=== PATIENT | female | born 1975 | race African-American/Black ===

== ENCOUNTER 2017-05-04 16:48 | Emergency (ER) | payer MEDICAID ==
[~2017-05-04] VITALS: Ht 162.6 cm; Wt 64.0 kg
[2017-05-04] MEDS ORDERED: KEPP500 PO (16:58)
[2017-05-04] MEDS ORDERED: PHEN100C4 PO (16:58)
[2017-05-04 20:15] VITALS: BP 101/52
== END 2017-05-04 21:00 | disposition home or self-care (01) ==
LOC: ER 20:56
DX: J06.9 Acute upper respiratory infection, unspecified (principal); J45.909 Unspecified asthma, uncomplicated; G40.909 Epilepsy, unspecified, not intractable, without status epilepticus; F17.210 Nicotine dependence, cigarettes, uncomplicated
CPT/HCPCS: 99283